=== PATIENT | male | born 1940 | race Caucasian/White ===

== ENCOUNTER 2022-12-25 07:59 | Day surgery (SDC) | payer MEDICARE, OTHER ==
[2022-12-22 12:01] LABS: BASOPHILS % (AUTO) 0.3 % (0-1); EOSINOPHILS # (AUTO) 0.1 X10'3 (0-0.9); EOSINOPHILS % (AUTO) 2.6 % (0-6); LYMPHOCYTES # (AUTO) 1.4 X10'3 (1.1-4.8); LYMPHOCYTES % (AUTO) 38.6 % (21-51); MEAN CORPUSCULAR HEMOGLOBIN 28.3 PG (27.0-31.0); MEAN CORPUSCULAR HGB CONC 32.2 g/dL (33.0-36.5); MEAN CORPUSCULAR VOLUME 87.8 FL (78-98); MEAN PLATELET VOLUME 7.9 FL (7.4-10.4); MONOCYTES # (AUTO) 0.5 X10'3 (0-0.9); MONOCYTES % (AUTO) 14.6 % (2-12); NEUTROPHILS # (AUTO) 1.6 X10'3 (1.8-7.7); NEUTROPHILS % (AUTO) 43.9 % (42-75); PRE OP HEMATOCRIT 38.5 % (42.0-52.0); PRE OP HEMOGLOBIN 12.4 g/dL (14.0-17.9); PRE OP PLATELET COUNT 215 X10'3 (140-440); RED BLOOD COUNT 4.38 X10'6 (4.70-6.10); RED CELL DISTRIBUTION WIDTH 18.6 % (11.5-14.5)
[2022-12-22 12:02] LABS: CLARITY,URINE CLEAR (Clear); COLOR,URINE YELLOW (Yellow); GLUCOSE, URINE NEGATIVE (Neg); KETONES,URINE NEGATIVE (Neg); LEUKOCYTE ESTERASE ,URINE NEGATIVE (Neg); NITRITES, URINE NEGATIVE (Neg); OCCULT BLOOD,URINE NEGATIVE (Neg); PH,URINE 7.5 (4.8-8.0); PROTEIN,URINE NEGATIVE (Neg); UROBILINOGEN,URINE 0.2 E.U/dL (0.2-1.0)
[2022-12-22 12:06] LABS: UA COLLECTION TYPE CLN CATCH MIDSTREAM
[2022-12-22 12:22] LABS: ALBUMIN 3.9 G/DL (3.4-5.0); ALBUMIN/GLOBULIN RATIO 1.3 (1.1-1.5); ALKALINE PHOSPHATASE 125 IU/L (46-116); BLOOD UREA NITROGEN 16 MG/DL (7-18); BUN/CREATININE RATIO 17.6 (10.0-20.0); CALCIUM 8.8 MG/DL (8.5-10.1); CHLORIDE 106 MMOL/L (99-107); CREATININE 0.91 MG/DL (0.60-1.10); PRE OP ANION GAP 6 (8-16); PRE OP AST 64 U/L (10-37); PRE OP BILIRUB, TOTAL 0.4 MG/DL (0.0-1.0); PRE OP GLUCOSE 127 MG/DL (70-104); PRE OP POTASSIUM 4.4 MMOL/L (3.4-5.1); PRE OP SODIUM 141 MMOL/L (135-145); TOTAL CARBON DIOXIDE 28.9 MMOL/L (24-32); eGFR 80 ML/MIN
[2022-12-22 12:30] LABS: ANISOCYTOSIS 2+; PLATELET ESTIMATE NORMAL
[2022-12-22 12:31] LABS: PRE OP ALT 83 U/L (30-65)
[~2022-12-25] VITALS: Ht 175.3 cm; Wt 83.7 kg
[~2022-12-25 07:59] MED LIST: ALLO300T2 PO; ATOR20TA66 PO; B-COMPLEX; CARV3.122 PO; DOCUMENT DATE & TIME OF BETA-BLOCKER PO ONE; MULTIVITAMIN; PANT-47 PO; RIVA20TA PO; VENL-191 PO; VITAMIN D3; cefazolin 2gm/D5W 100mL 100 ML IV ONE; famotidine 20mg tablet PO ONE; ringers solution, lacted 1,000 ML IV SCH
[2022-12-25] MEDS ORDERED: sevoflurane 250ml liquid IH ONE (10:52)
[2022-12-25] MEDS ORDERED: fentaNYL/PF 50MCG/1 ML 2ML syringe ONE (10:55)
[2022-12-25] MEDS ORDERED: midazolam 1 mg/ML 2ml injection ONE (10:57)
[2022-12-25] MEDS ORDERED: BUPIVAcaine/PF 2.5mg/ml (0.25%) 10ml vial ONE (11:01)
[2022-12-25] MEDS ORDERED: BUPIVAcaine/PF 2.5 mg/ml (0.25%) 30ml vial IJ ONE (11:34)
[2022-12-25 11:49] VITALS: BP 145/85
[2022-12-25 11:50] VITALS: BP 145/85
[2022-12-25] MEDS ORDERED: dexamethasone sod phosphate 4mg/ml inj. ONE (11:54)
[2022-12-25] MEDS ORDERED: ondansetron/PF 4mg/2ml inj ONE (11:54)
[2022-12-25] MEDS ORDERED: propofol inj 20 ML IV ONE (11:54)
[2022-12-25] MEDS ORDERED: LIDOcaine 2% (20mg/ml) 5ml vial ONE (11:54)
[2022-12-25] MEDS ORDERED: ePHEDrine 50MG/ML INJ. ONE (11:54)
[2022-12-25] MEDS ORDERED: ROPIVAcaine 0.5% (5mg/ml) 30ml vial ONE (11:54)
[2022-12-25 12:50] VITALS: BP 127/63
[2022-12-25 13:00] VITALS: BP 130/81
[2022-12-25 13:10] VITALS: BP 138/83
[2022-12-25 13:20] VITALS: BP 141/81
--- NOTE | 2022-12-25 13:25 | NUR ---
ALL DISCHARGE CRITERIA HAS BEEN MET. VSS, PAIN AT A TOLERABLE LEVEL, ABLE TO SAFELY AMBULATE AND TRANSFER SELF. IV TAKEN OUT WITHOUT ANY COMPLICATIONS. ALL DISCHARGE INSTRUCTIONS COVERED WITH PATIENT AND ALL QUESTIONS ANSWERED. PATIENT TAKEN OUT VIA WHEELCHAIR WITH ALL BELONGINGS TO PERSONAL VEHICLE WHERE FAMILY DROVE PATIENT HOME. Addendum: 12/25/22 at 1339 by Lui Barnes RN Amended: Links added.
== END 2022-12-25 13:25 | disposition home or self-care (01) ==
LOC: PAS 07:59
PROVIDERS: ATTEND Podiatrist Foot & Ankle Surgery
DX: M20.42 Other hammer toe(s) (acquired), left foot (principal); M77.42 Metatarsalgia, left foot; M20.22 Hallux rigidus, left foot; Z79.899 Other long term (current) drug therapy; G89.18 Other acute postprocedural pain; Z98.890 Other specified postprocedural states; I10 Essential (primary) hypertension; M19.90 Unspecified osteoarthritis, unspecified site; M10.9 Gout, unspecified; F32.A Depression, unspecified
CPT/HCPCS: 28270; 28285; 28750; 36415; 64450; 73620; 80053; 81003; 82948; 85025; A6223; C1713; J0690; J1100; J2250; J2405; J2704; J2795; J3010; J3490; J7030; J7120; Z7506; Z7508; Z7512; 76000; 85008; 99281; A4215; A4618; A6449; A7000

== ENCOUNTER 2022-12-25 17:03 | Emergency (ER) | payer MEDICARE, OTHER ==
[~2022-12-25] VITALS: Ht 175.3 cm; Wt 83.0 kg
[~2022-12-25 17:03] MED LIST changes: -DOCUMENT DATE & TIME OF BETA-BLOCKER PO ONE; -cefazolin 2gm/D5W 100mL 100 ML IV ONE; -famotidine 20mg tablet PO ONE; -ringers solution, lacted 1,000 ML IV SCH
[2022-12-25 17:08] VITALS: BP 133/85
--- NOTE | 2022-12-25 17:25 | NUR ---
Pt in [facility], Pt had foot surgery this morning. When Pt returned home he began to bleed. Pt educated to POC. Pt in agreement. Pending providers eval and treatment.
== END 2022-12-25 18:02 | disposition home or self-care (01) ==
LOC: ER 17:04
DX: T81.9XXA Unspecified complication of procedure, initial encounter (principal)
CPT/HCPCS: 99281; A6449

== ENCOUNTER 2024-11-10 08:46 | Outpatient (CLI) | payer MEDICARE, OTHER | END 2024-11-10 23:59 | disposition home or self-care (01) | LOC: RAD 08:46 | PROVIDERS: ATTEND Family Medicine | DX: R94.5 Abnormal results of liver function studies (principal) | CPT/HCPCS: 76700 ==

== ENCOUNTER 2024-11-21 15:14 | Outpatient (CLI) | payer MEDICARE, OTHER ==
[2024-11-21 15:40] LABS: BASOPHILS % (AUTO) 0.6 % (0-1); EOSINOPHILS # (AUTO) 0.1 X10'3 (0-0.9); EOSINOPHILS % (AUTO) 2.4 % (0-6); HEMATOCRIT 27.4 % (42.0-52.0); HEMOGLOBIN 8.2 g/dl (14.0-17.9); LYMPHOCYTES # (AUTO) 1.4 X10'3 (1.1-4.8); LYMPHOCYTES % (AUTO) 30.3 % (21-51); MEAN CORPUSCULAR HEMOGLOBIN 21.9 PG (27.0-31.0); MEAN PLATELET VOLUME 7.7 FL (7.4-10.4); MONOCYTES # (AUTO) 0.5 X10'3 (0-0.9); NEUTROPHILS # (AUTO) 2.6 X10'3 (1.8-7.7); NEUTROPHILS % (AUTO) 55.7 % (42-75); PLATELET COUNT 234 X10'3 (140-440); RED BLOOD COUNT 3.75 X10'6 (4.70-6.10); RED CELL DISTRIBUTION WIDTH 18.8 % (11.5-14.5); WHITE BLOOD COUNT 4.7 X10'3 (4.5-11.0)
== END 2024-11-21 23:59 | disposition home or self-care (01) ==
LOC: LAB 15:14
PROVIDERS: ATTEND Family Medicine
DX: D64.9 Anemia, unspecified (principal)
CPT/HCPCS: 36415; 85025

== ENCOUNTER 2025-05-08 13:05 | Outpatient (CLI) | payer MEDICARE, OTHER ==
--- NOTE | 2025-05-08 14:11 | RADIOLOGY REPORT ---
Indication: UPPER AND LOWER LEFT QUADRANT PAIN Technique: CT axial images of the abdomen and pelvis are obtained with intravenous contrast. Coronal and sagittal reformats were obtained. Radiation Dose Information: CTDI volume is 21 mGy. Dose-length product is 1275 mGy*cm Comparison: US ULTRASOUND OF ABDOMEN on DOS: 11/10/24 FINDINGS: Lung bases demonstrate atelectasis. Adrenal glands, spleen, pancreas unremarkable in shape. Hepatic steatosis. No CT evidence for lauren lithiasis. No hydronephrosis, nephrolithiasis. Stomach partially distended. Small bowel loops normal in caliber. Moderate volume stool in the colon. No secondary signs for appendicitis. Abdominal aortic atherosclerotic disease. Bladder partially distended. No free pelvic fluid. No ingui nal lymphadenopathy. Maev-zh-fabaicdr thoracolumbar degenerative disc disease. Sclerotic changes of the bilateral femoral heads, [id number]. IMPRESSION: Moderate volume stool in the colon. Atherosclerotic disease. Hepatic steatosis. Sclerotic changes of the bilateral femoral heads may represent sequela of avascular necrosis. Other findings as described.
== END 2025-05-08 23:59 | disposition home or self-care (01) ==
LOC: 64 CT 13:05
PROVIDERS: ATTEND Family Medicine
DX: K76.0 Fatty (change of) liver, not elsewhere classified (principal); J98.11 Atelectasis; R10.12 Left upper quadrant pain; R10.32 Left lower quadrant pain; I70.0 Atherosclerosis of aorta; N32.89 Other specified disorders of bladder; M51.35 Other intervertebral disc degeneration, thoracolumbar region
CPT/HCPCS: 74176